=== PATIENT | male | born 1980 | race African-American/Black ===

== ENCOUNTER 2018-12-25 16:20 | Inpatient (IN) | payer MEDICARE, MEDICAID ==
[~2018-12-25] VITALS: Ht 175.3 cm; Wt 108.9 kg
[2018-12-25] MEDS ORDERED: NITROGLYCERIN OINT 1GM/INCH UDPKT TD ONE (17:15)
[2018-12-25 18:18] LABS: BASOPHILS % 0.8 % (0.0-2.0); HEMATOCRIT. 40.5 % (42.0-52.0); LYMPHOCYTES % 14.6 % (20.0-50.0); MEAN CORPUSCULAR VOLUME 83.8 fL (80.0-94.0); MEAN PLATELET VOLUME 9.3 fl (7.4-10.4); MONOCYTES % 9.1 % (2.0-8.0); NEUTROPHILS % 74.5 % (40.0-76.0); PLATELET 223 x1000/uL (130-400); RED BLOOD CELL COUNT 4.84 mill/uL (4.7-6.1); RED CELL DISTRIBUTION WIDTH 13.4 % (11.6-14.6)
[2018-12-25 18:20] LABS: CHLORIDE 100 mEq/L (98-107)
[2018-12-25] MEDS ORDERED: POTASSIUM CHLORIDE 20MEQ TABLET SR PO ONE (18:45)
[2018-12-25] MEDS ORDERED: HYDRALAZINE 20MG/ML VIAL IV ONE ×2 (19:15→20:45)
[2018-12-25] MEDS ORDERED: ASPIRIN 325MG EC TABLET PO ONE (19:15)
[2018-12-25] MEDS ORDERED: CLONIDINE 0.2MG TABLET PO ONE (20:45)
[2018-12-25] MEDS ORDERED: HYDR12.529 PO (22:24)
[2018-12-25] MEDS ORDERED: ONDANSETRON HCL 4MG/2ML INJ IV PRN (22:30)
[2018-12-25] MEDS ORDERED: CLONIDINE 0.2MG TABLET PO PRN (22:30)
[2018-12-25] MEDS ORDERED: ACETAMINOPHEN 325MG TABLET PO PRN (22:30)
[2018-12-25] MEDS: AMLODIPINE 10MG TABLET PO SCH (22:54)
[2018-12-25] MEDS: METOPROLOL TARTRATE 50MG TABLET PO SCH (22:54)
[2018-12-25 23:04] VITALS: BP 191/123
[2018-12-26] VITALS (10 sets, daily range): BP systolic 141–172; BP diastolic 78–122
[2018-12-26 07:10] LABS: BASOPHILS % 0.6 % (0.0-2.0); EOSINOPHILS % 1.2 % (0.0-5.0); HEMATOCRIT. 37.6 % (42.0-52.0); LYMPHOCYTES % 12.5 % (20.0-50.0); MEAN CORPUSCULAR HEMOGLOBIN 29.4 pg (28.0-32.0); MEAN CORPUSCULAR VOLUME 84.7 fL (80.0-94.0); MEAN PLATELET VOLUME 9.7 fl (7.4-10.4); MONOCYTES % 10.9 % (2.0-8.0); NEUTROPHILS % 74.8 % (40.0-76.0); PLATELET 258 x1000/uL (130-400); RED BLOOD CELL COUNT 4.44 mill/uL (4.7-6.1); RED CELL DISTRIBUTION WIDTH 13.7 % (11.6-14.6)
[2018-12-26] MEDS ORDERED: MORPHINE SULFATE 2 MG/ML CPJ (NOT FOR IM USE) IV PRN (07:30)
[2018-12-26] MEDS ORDERED: CLONIDINE 0.1MG TABLET PO PRN (07:45)
[2018-12-26] MEDS: METOPROLOL TARTRATE 50MG TABLET PO SCH ×2 (08:55→21:04)
[2018-12-26] MEDS: AMLODIPINE 10MG TABLET PO SCH (08:55)
[2018-12-26] MEDS: SODIUM CHLORIDE 0.45% 1,000 ML IV SCH ×2 (08:59→23:24)
[2018-12-26] MEDS ORDERED: HYDROCHLOROTHIAZIDE 12.5MG CAPSULE PO SCH (09:00)
[2018-12-26] MEDS ORDERED: LISINOPRIL 40MG TABLET PO SCH (09:00)
[2018-12-26] MEDS ORDERED: POTASSIUM CHLORIDE INJ 60 MEQ in DEXT 5% WATER 500 ML IV SCH (09:00)
[2018-12-26 09:51] LABS: PHOSPHORUS 4.2 mg/dL (2.5-4.9)
[2018-12-26 12:18] LABS: HEPATITIS B SURFACE ANTIGEN NEGATIVE
[2018-12-26 12:48] LABS: HEPATITIS A AB IGM NEGATIVE (NEGATIVE)
[2018-12-26] MEDS: HYDRALAZINE HCL 50MG TABLET PO SCH ×2 (14:34→21:06)
[2018-12-26] MEDS: CLONIDINE 0.2MG TABLET PO SCH ×2 (14:34→21:08)
[2018-12-26 19:26] LABS: *AMPHETAMINES SCREEN URINE NEGATIVE (NEGATIVE); *BARBITURATES SCREEN URINE NEGATIVE (NEGATIVE); *BENZODIAZEPINES SCREEN URINE NEGATIVE (NEGATIVE); *COCAINE SCREEN URINE NEGATIVE (NEGATIVE); CANNABINOID URINE SCREEN NEGATIVE (NEGATIVE); METHADONE URINE SCREEN NEGATIVE (NEGATIVE); OPIATES URINE SCREEN PRESUMTIVE POSITIVE (NEGATIVE); PHENCYCLIDINE URINE SCREEN NEGATIVE (NEGATIVE)
[2018-12-26 20:11] LABS: CLARITY URINE CLEAR (CLEAR); COLOR URINE YELLOW (YELLOW); KETONES URINE NEGATIVE (NEGATIVE); LEUKOCYTE ESTERASE URINE NEGATIVE (NEGATIVE); NITRITE URINE NEGATIVE (NEGATIVE); OCCULT BLOOD URINE TRACE (NEGATIVE); PROTEIN URINE 3+ (NEGATIVE); UROBILINOGEN URINE 0.2 E.U./dL (0.2-1.0)
[2018-12-26] MEDS ORDERED: POTASSIUM CHLORIDE 20MEQ TABLET SR PO NR (20:45)
[2018-12-26 23:54] LABS: HEMATOCRIT. 36.2 % (42.0-52.0); HEMOGLOBIN. 12.4 g/dL (14.0-18.0); LYMPHOCYTES % 20.5 % (20.0-50.0); MEAN CORPUSCULAR HEMOGLOBIN 29.3 pg (28.0-32.0); MEAN CORPUSCULAR VOLUME 85.2 fL (80.0-94.0); MEAN PLATELET VOLUME 9.3 fl (7.4-10.4); MONOCYTES % 11.4 % (2.0-8.0); NEUTROPHILS % 66.1 % (40.0-76.0); PLATELET 272 x1000/uL (130-400); RED BLOOD CELL COUNT 4.25 mill/uL (4.7-6.1); RED CELL DISTRIBUTION WIDTH 13.7 % (11.6-14.6)
[2018-12-26 23:56] LABS: CHLORIDE 97 mEq/L (98-107)
[2018-12-26 23:59] LABS: PROTHROMBIN TIME 10.7 sec (9.6-11.0)
[2018-12-27] MEDS: HYDRALAZINE HCL 50MG TABLET PO SCH (06:10)
[2018-12-27] MEDS: CLONIDINE 0.2MG TABLET PO SCH ×3 (06:11→21:22)
[2018-12-27 07:19] LABS: BASOPHILS % 0.6 % (0.0-2.0); EOSINOPHILS % 0.3 % (0.0-5.0); HEMATOCRIT. 34.1 % (42.0-52.0); HEMOGLOBIN. 11.5 g/dL (14.0-18.0); LYMPHOCYTES % 12.7 % (20.0-50.0); MEAN CORPUSCULAR HEMOGLOBIN 28.8 pg (28.0-32.0); MEAN CORPUSCULAR VOLUME 85.7 fL (80.0-94.0); MEAN PLATELET VOLUME 9.8 fl (7.4-10.4); MONOCYTES % 9.7 % (2.0-8.0); NEUTROPHILS % 76.7 % (40.0-76.0); PLATELET 218 x1000/uL (130-400); RED BLOOD CELL COUNT 3.98 mill/uL (4.7-6.1); RED CELL DISTRIBUTION WIDTH 13.4 % (11.6-14.6)
[2018-12-27] MEDS ORDERED: POTASSIUM CHLORIDE 20MEQ TABLET SR PO NR (07:30)
[2018-12-27 08:00] VITALS: BP 164/102
[2018-12-27] MEDS: METOPROLOL TARTRATE 50MG TABLET PO SCH ×2 (08:23→21:00)
[2018-12-27] MEDS: AMLODIPINE 10MG TABLET PO SCH (08:23)
[2018-12-27 09:08] LABS: HIV SCREEN 4G Non Reactive (Non Reactive)
[2018-12-27] MEDS ORDERED: KCL 20MEQ/100ML PREMIX 100 ML IV NR (10:00)
[2018-12-27] MEDS ORDERED: CLONIDINE HCL 0.2MG/24HR PATCH TD SCH (10:00)
[2018-12-27] MEDS ORDERED: ENOXAPARIN 40MG/0.4ML SYR SUBCUT SCH (11:00)
[2018-12-27] MEDS ORDERED: CLOPIDOGREL 75MG TABLET PO SCH (11:00)
[2018-12-27] MEDS: LORAZEPAM 2MG/ML CPJ IV PRN ×2 (11:50→15:48)
[2018-12-27] MEDS: SODIUM CHLORIDE 0.45% 1,000 ML IV SCH (14:48)
[2018-12-27] MEDS: HYDRALAZINE HCL 100MG TABLET PO SCH ×2 (15:29→21:22)
[2018-12-27 16:00] VITALS: BP 135/92
[2018-12-27 17:11] LABS: ANTI-NUCLEAR ANTIBODIES DIRECT Negative (Negative)
[2018-12-27 18:00] VITALS: BP 154/91
[2018-12-27] MEDS ORDERED: LORAZEPAM 2MG/ML CPJ IV NR (18:00)
[2018-12-27] MEDS ORDERED: LORAZEPAM 2MG/ML CPJ IV PRN (18:00)
[2018-12-27] MEDS ORDERED: ATORVASTATIN CALCIUM 20MG TABLET PO SCH (21:00)
[2018-12-27 23:35] VITALS: BP 146/92
[2018-12-28 17:06] LABS: COMPLEMENT C3 150 mg/dL (82-167)
== END 2018-12-27 21:43 | disposition short-term general hospital (02) | DRG 65 ==
LOC: ER 17:00 → EDBEDREQSVC 17:11 → EDBEDREQ 17:53 → CANBEDREQ 18:11 → 5EST 19:17 → ENRESERV 19:48
PROVIDERS: ADMIT Internal Medicine; ATTEND Internal Medicine
DX: I63.9 Cerebral infarction, unspecified (principal); I16.1 Hypertensive emergency; N17.9 Acute kidney failure, unspecified; E44.1 Mild protein-calorie malnutrition; I16.0 Hypertensive urgency; E87.6 Hypokalemia; F17.210 Nicotine dependence, cigarettes, uncomplicated; H54.7 Unspecified visual loss; I12.9 Hypertensive chronic kidney disease with stage 1 through stage 4 chronic kidney disease, or unspecified chronic kidney disease; R06.4 Hyperventilation; E66.9 Obesity, unspecified; N18.9 Chronic kidney disease, unspecified; Z68.35 Body mass index [BMI] 35.0-35.9, adult; Z79.899 Other long term (current) drug therapy; Z91.14 Patient's other noncompliance with medication regimen; Z71.6 Tobacco abuse counseling
CPT/HCPCS: 36415; 70551; 71045; 76770; 80048; 80061; 80305; 82550; 82962; 83735; 83880; 84100; 84132; 84484; 86038; 86160; 86705; 86709; 86803; 86850; 86900; 87340; 87389; 93005; 93306; 93970; 96374; 96376; 99285; J0360; J1650; J2060; J2270; J3480; J7060; J7070

== ENCOUNTER 2019-05-21 22:39 | Inpatient (IN) | payer MEDICARE, MEDICAID ==
[~2019-05-21] VITALS: Ht 175.3 cm; Wt 126.6 kg
[~2019-05-21 22:39] MED LIST: HYDR12.529 PO
[2019-05-21 23:46] LABS: HEMOGLOBIN. 11.7 g/dL (14.0-18.0); MEAN CORPUSCULAR HEMOGLOBIN 28.4 pg (28.0-32.0); MEAN CORPUSCULAR VOLUME 87.3 fL (80.0-94.0); MEAN PLATELET VOLUME 8.9 fl (7.4-10.4); PLATELET 196 x1000/uL (130-400); RED BLOOD CELL COUNT 4.12 mill/uL (4.7-6.1); RED CELL DISTRIBUTION WIDTH 15.8 % (11.6-14.6)
[2019-05-21 23:51] LABS: CHLORIDE 110 mEq/L (98-107)
[2019-05-22] VITALS (47 sets, daily range): BP systolic 134–203; BP diastolic 72–128
[2019-05-22] MEDS ORDERED: LABETALOL HCL 20MG/4ML CARPUJECT IV ONE (00:15)
[2019-05-22] MEDS ORDERED: LABETALOL 5MG/ML SYR 20 MG/4 ML SYRINGE IV SCH (01:00)
[2019-05-22] MEDS ORDERED: NICARDIPINE 50 MG in SODIUM CHLORIDE 0.9% 230 ML IV STA (01:27)
[2019-05-22] MEDS ORDERED: NICARDIPINE 50 MG in SODIUM CHLORIDE 0.9% 230 ML IV SCH (02:45)
[2019-05-22 02:49] LABS: PLATELET ESTIMATE NORMAL
[2019-05-22] MEDS ORDERED: SODIUM CHLORIDE 0.45% 1,000 ML IV SCH (05:42)
[2019-05-22] MEDS ORDERED: ONDANSETRON HCL 4MG/2ML INJ IV PRN (05:45)
[2019-05-22] MEDS ORDERED: HYDROCODONE/ACETAMINOPHEN 5/325MG TABLET PO PRN (05:45)
[2019-05-22] MEDS ORDERED: IPRATROPIUM/ALBUTEROL 0.5-3(2.5)MG/3ML NEB NEB PRN (05:45)
[2019-05-22] MEDS ORDERED: NA PHOS,M-B/NA PHOS,DI-BA ENEMA 118ML PR PRN (05:45)
[2019-05-22] MEDS ORDERED: CLONIDINE 0.1MG TABLET PO PRN (05:45)
[2019-05-22] MEDS ORDERED: MAGNESIUM/ALUMINUM HYDROXIDE/SIMETHICONE 30ML UDC PO PRN (05:45)
[2019-05-22] MEDS ORDERED: MORPHINE SULFATE 2 MG/ML CPJ (NOT FOR IM USE) IV PRN (05:45)
[2019-05-22] MEDS ORDERED: DOCUSATE SODIUM 100MG CAPSULE PO PRN (05:45)
[2019-05-22] MEDS ORDERED: GUAIFENESIN 200MG/10ML SUGAR FREE UDC PO PRN (05:45)
[2019-05-22] MEDS ORDERED: ACETAMINOPHEN 325MG TABLET PO PRN (05:45)
[2019-05-22] MEDS ORDERED: LORAZEPAM 2MG/ML CPJ IV PRN (05:45)
[2019-05-22] MEDS: ENOXAPARIN 40MG/0.4ML SYR SUBCUT SCH ×2 (08:27→09:00)
[2019-05-22] MEDS ORDERED: ASPIRIN 81MG EC TABLET PO SCH (09:00)
[2019-05-22] MEDS ORDERED: METOPROLOL TARTRATE 25MG TABLET PO SCH (09:00)
[2019-05-22] MEDS ORDERED: AMLODIPINE 10MG TABLET PO SCH (09:00)
[2019-05-22] MEDS ORDERED: LISINOPRIL 20MG TABLET PO SCH (09:00)
[2019-05-22] MEDS ORDERED: NICARDIPINE 100 MG in SODIUM CHLORIDE 0.9% 60 ML IV PRN (09:30)
[2019-05-22] MEDS ORDERED: LABE300T3 PO (09:44)
[2019-05-22] MEDS ORDERED: LIP40 PO (09:44)
[2019-05-22] MEDS ORDERED: HYDR100T26 PO (09:44)
[2019-05-22] MEDS ORDERED: OMEP20CA5 PO (09:45)
[2019-05-22] MEDS ORDERED: CHOL200010 PO (09:45)
[2019-05-22] MEDS ORDERED: ASPI-1079 PO (09:45)
[2019-05-22] MEDS ORDERED: NICARDIPINE 50 MG in SODIUM CHLORIDE 0.9% 230 ML IV PRN (10:00)
[2019-05-22 16:16] LABS: CREATINE KINASE MB FRACTION 2.1 ng/mL (0.5-3.6)
== END 2019-05-22 16:35 | disposition left against medical advice (07) | DRG 64 ==
LOC: ER 22:39 → MICUSO 05-22 00:24 → ENRESERV 05-22 00:55
PROVIDERS: ADMIT Internal Medicine; ATTEND Internal Medicine
DX: I63.9 Cerebral infarction, unspecified (principal); G93.41 Metabolic encephalopathy; N17.0 Acute kidney failure with tubular necrosis; I16.1 Hypertensive emergency; Z68.41 Body mass index [BMI] 40.0-44.9, adult; D49.6 Neoplasm of unspecified behavior of brain; E66.01 Morbid (severe) obesity due to excess calories; E78.5 Hyperlipidemia, unspecified; G93.89 Other specified disorders of brain; I12.9 Hypertensive chronic kidney disease with stage 1 through stage 4 chronic kidney disease, or unspecified chronic kidney disease; I25.10 Atherosclerotic heart disease of native coronary artery without angina pectoris; N18.9 Chronic kidney disease, unspecified; Z79.899 Other long term (current) drug therapy; Z82.49 Family history of ischemic heart disease and other diseases of the circulatory system; Z82.3 Family history of stroke; I25.2 Old myocardial infarction; Z91.19 Patient's noncompliance with other medical treatment and regimen
CPT/HCPCS: 36415; 70551; 71045; 82550; 82553; 83036; 83880; 84484; 85379; 93005; 93306; 93880; 99291; J1650; J3490; J7050

== ENCOUNTER 2022-06-29 12:28 | Emergency (ER) | payer OTHER, MEDICAID ==
[~2022-06-29] VITALS: Ht 177.8 cm; Wt 100.0 kg
[~2022-06-29 12:28] MED LIST changes: +ASPI-1079 PO; +CHOL200010 PO; +HYDR100T26 PO; -HYDR12.529 PO; +LABE300T36 PO; +LIP40 PO; +OMEP20CA14 PO
[2022-06-29] MEDS ORDERED: ADENOSINE 3 MG/ML 2ML VIAL IV ONE ×2 (13:00)
[2022-06-29] MEDS ORDERED: DILTIAZEM HCL 5MG/ML 5ML VIAL IV ONE (13:00)
[2022-06-29] MEDS ORDERED: DILTIAZEM HCL 125 MG in DEXT 5% WATER 100 ML IV ONE (13:15)
[2022-06-29 13:18] LABS: BASOPHILS % 0.9 % (0.0-2.0); EOSINOPHILS % 2.2 % (0.0-5.0); HEMATOCRIT. 37.4 % (42.0-52.0); HEMOGLOBIN. 12.7 g/dL (14.0-18.0); LYMPHOCYTES % 18.9 % (20.0-50.0); MEAN CORPUSCULAR HEMOGLOBIN 29.3 pg (28.0-32.0); MEAN PLATELET VOLUME 8.9 fl (7.4-10.4); MONOCYTES % 11.6 % (2.0-8.0); NEUTROPHILS % 66.4 % (40.0-76.0); PLATELET 160 x1000/uL (130-400); RED BLOOD CELL COUNT 4.34 mill/uL (4.7-6.1); RED CELL DISTRIBUTION WIDTH 13.9 % (11.6-14.6)
[2022-06-29 13:41] LABS: CHLORIDE 96 mEq/L (98-107)
[2022-06-29] MEDS: DILTIAZEM HCL 125 MG in DEXT 5% WATER 100 ML IV PRN ×2 (14:10→15:23)
[2022-06-29] MEDS ORDERED: ENOXAPARIN 100MG/ML SYR SUBCUT NR (16:15)
[2022-06-29 16:32] LABS: CLARITY URINE CLEAR (CLEAR); COLOR URINE YELLOW (YELLOW); KETONES URINE NEGATIVE (NEGATIVE); LEUKOCYTE ESTERASE URINE NEGATIVE (NEGATIVE); NITRITE URINE NEGATIVE (NEGATIVE); OCCULT BLOOD URINE NEGATIVE (NEGATIVE); PH URINE >=9.0 (4.5-8.0); PROTEIN URINE 3+ (NEGATIVE); SPECIFIC GRAVITY URINE 1.006 (1.005-1.030); UROBILINOGEN URINE 0.2 E.U./dL (0.2-1.0)
[2022-06-29 16:35] VITALS: BP 160/92
[2022-06-29 16:43] LABS: *AMPHETAMINES SCREEN URINE NEGATIVE (NEGATIVE); *BARBITURATES SCREEN URINE NEGATIVE (NEGATIVE); *BENZODIAZEPINES SCREEN URINE NEGATIVE (NEGATIVE); *COCAINE SCREEN URINE NEGATIVE (NEGATIVE); CANNABINOID URINE SCREEN NEGATIVE (NEGATIVE); METHADONE URINE SCREEN NEGATIVE (NEGATIVE); OPIATES URINE SCREEN NEGATIVE (NEGATIVE); PHENCYCLIDINE URINE SCREEN NEGATIVE (NEGATIVE)
[2022-06-29 18:54] LABS: PROTHROMBIN TIME 10.6 sec (9.6-11.0)
[2022-06-30] MEDS ORDERED: ENOXAPARIN 100MG/ML SYR SUBCUT SCH (20:00)
== END 2022-06-29 16:40 | disposition left against medical advice (07) ==
LOC: ER 12:28 → EDBEDREQSVC 14:30 → EDBEDREQTM 14:38 → EDBEDREQ 14:38 → EDBEDREQSVC 16:14 → ER 16:40 → CANBEDREQ 16:59
DX: I48.91 Unspecified atrial fibrillation (principal); I47.1 Supraventricular tachycardia; E11.22 Type 2 diabetes mellitus with diabetic chronic kidney disease; I13.11 Hypertensive heart and chronic kidney disease without heart failure, with stage 5 chronic kidney disease, or end stage renal disease; N18.6 End stage renal disease; I25.2 Old myocardial infarction; F12.10 Cannabis abuse, uncomplicated; Z86.73 Personal history of transient ischemic attack (TIA), and cerebral infarction without residual deficits; Z99.2 Dependence on renal dialysis; Z95.0 Presence of cardiac pacemaker; Z79.82 Long term (current) use of aspirin
CPT/HCPCS: 36415; 71045; 80053; 80305; 81003; 83880; 84484; 85025; 85610; 93005; 96365; 96375; 99291; J0153; J3490; J7060